=== PATIENT | female | born 1970 | race Caucasian/White ===

== ENCOUNTER 2024-11-28 18:56 | Emergency (ER) | payer OTHER ==
[~2024-11-28] VITALS: Ht 167.6 cm; Wt 77.3 kg
[2024-11-28 19:00] VITALS: BP 99/51; PULSE 88; RESP 18; TEMP 97.9; O2SAT 99
[2024-11-28] MEDS: LORazepam 1 MG TABLET PO ONE (19:56)
== END 2024-11-28 20:28 | disposition home or self-care (01) ==
LOC: EMS 18:56
DX: R45.1 Restlessness and agitation (principal)
CPT/HCPCS: 99283; 99285